=== PATIENT | female | born 1995 | race Caucasian/White ===

== ENCOUNTER 2019-06-06 10:08 | Emergency (ER) | payer OTHER ==
[~2019-06-06] VITALS: Ht 154.9 cm; Wt 68.0 kg
--- NOTE | 2019-06-06 11:15 | RAD ---
EXAM: Head CT without contrast. HISTORY: Trauma. Syncope. TECHNIQUE: Computed tomographic images of the head were obtained without contrast. *One or more of the following individualized dose reduction techniques were utilized for this examination: 1. Automated exposure control. 2. Adjustment of the mA and/or kV according to patient size. 3. Use of iterative reconstruction technique. COMPARISON: None. FINDINGS: There is no acute or subacute extra-axial or intraparenchymal hemorrhage. There is no mass effect or midline shift. There is no hydrocephalus. The anton-white matter differentiation pattern is intact. The visualized portions of the orbits, paranasal sinuses and mastoid air cells are unremarkable. No suspicious calvarial lesion is seen. IMPRESSION: No acute intracranial findings. Electronically signed by: Margarita Campbell MD (06/06/2019 11:11 AM) [place] [id number]
--- NOTE | 2019-06-06 11:46 | PHYS DOC ---
Past History Past Medical History: No Pertinent History Past Surgical History: Tonsillectomy, Other Additional Past Surgical Histo: adnoidectomy Alcohol Use: Occasionally Drug Use: None Adult General Chief Complaint Chief Complaint: DIZZY/LIGHT HEADED HPI HPI Patient is a 24-year-old female who presented to ER today for evaluation of head injury. Patient says she was cleaning in her bedroom when she accidentally hit her right elbow against the dresser. She was having pain so she sat down on her bed. She then passed out from the pain. She hit the left side of her head the ground. She denies any neck pain. Patient felt much better now. Patient denies any pain in her elbow anymore. She denies any medical history, denies any chest pain or any trouble breathing. All other ROS is negative unless otherwise noted in HPI Review of Systems Review of Systems See above Allergies Allergies Allergies Coded Allergies Type Severity Reaction Last Updated Verified adhesive Allergy Unknown Rash 06/06/19 Yes Physical Exam Physical Exam See above Constitutional: Well developed, well nourished, no acute distress, non-toxic appearance. [] HENT: Normocephalic, there is a small scalp contusion on the left temporal area no laceration., bilateral external ears normal, oropharynx moist, no oral exudates, nose normal. [] Eyes: PERRLA, EOMI, conjunctiva normal, no discharge. [] Neck: Normal range of motion, no tenderness, supple, no stridor. [] Cardiovascular:Heart rate regular rhythm, no murmur [] Lungs & Thorax: Bilateral breath sounds clear to auscultation [] Abdomen: Bowel sounds normal, soft, no tenderness, no masses, no pulsatile masses. [] Skin: Warm, dry, no erythema, no rash. [] Back: No tenderness, no CVA tenderness. [] Extremities: No tenderness, no cyanosis, no clubbing, ROM intact, no edema. There is a small area of contusion on the back of her right elbow, there is no bony tenderness, there is full range of motion of her right elbow. Neurologic: Alert and oriented X 3, normal motor function, normal sensory function, no focal deficits noted. [] Psychologic: Affect normal, judgement normal, mood normal. [] Current Patient Data Vital Signs Vital Signs Date Time Temp Pulse Resp B/P (MAP) Pulse Ox O2 Delivery O2 Flow Rate FiO2 1/2/20 10:26 99.0 69 16 99 Room Air EKG EKG [] Radiology/Procedures Radiology/Procedures [][address] [address] IMAGING REPORT Signed PATIENT: CEZAR CHÁVEZ ACCOUNT: [id number] : 1995 LOCATION: ER AGE: 24 SEX: F EXAM STATUS: REG ER ORD. PHYSICIAN: FIOR ROMO DO REASON: hit head on dresser after passing out PROCEDURE: CT HEAD WO CONTRAST EXAM: Head CT without contrast. HISTORY: Trauma. Syncope. TECHNIQUE: Computed tomographic images of the head were obtained without contrast. *One or more of the following individualized dose reduction techniques were utilized for this examination: 1. Automated exposure control. 2. Adjustment of the mA and/or kV according to patient size. 3. Use of iterative reconstruction technique. COMPARISON: None. FINDINGS: There is no acute or subacute extra-axial or intraparenchymal hemorrhage. There is no mass effect or midline shift. There is no hydrocephalus. The anton-white matter differentiation pattern is intact. The visualized portions of the orbits, paranasal sinuses and mastoid air cells are unremarkable. No suspicious calvarial lesion is seen. IMPRESSION: No acute intracranial findings. Electronically signed by: Margarita Hernandes MD (06/06/2019 11:11 AM) [facility] DICTATED AND SIGNED BY: MARGARITA HERNANDES MD DATE: 06/06/19 1111 CC: PCP,NO; FIOR ROMO DO ~ Course & Med Decision Making Course & Med Decision Making Pertinent Labs and Imaging studies reviewed. (See chart for details) Patient is a 24-year-old female who passed out due to vasovagal response from pain. CT scan her head was normal. Patient is safe to discharge home. No further workup needed. Dragon Disclaimer Dragon Disclaimer This electronic medical record was generated, in whole or in part, using a voice recognition dictation system. Departure Departure: Impression: Primary Impression: Closed head injury Disposition: HOME, SELF-CARE Condition: STABLE Referrals: PCP,NO (PCP) FOLLOW UP WITH YOUR DOCTOR NEXT WEEK NEEDED Patient Instructions: Head Injury, Adult FIOR ROMO DO Jun 06, 2019 11:46
[2019-06-06 12:10] VITALS: BP 111/71
== END 2019-06-06 12:10 | disposition home or self-care (01) ==
LOC: ER 10:08
DX: S00.03XA Contusion of scalp, initial encounter (principal); S50.01XA Contusion of right elbow, initial encounter; R55 Syncope and collapse; Z88.8 Allergy status to other drugs, medicaments and biological substances; W18.09XA Striking against other object with subsequent fall, initial encounter; Y93.E9 Activity, other interior property and clothing maintenance; Y92.092 Bedroom in other non-institutional residence as the place of occurrence of the external cause; Y99.8 Other external cause status
CPT/HCPCS: 70450; 99284-25

== ENCOUNTER 2020-10-22 15:17 | Emergency (ER) | payer OTHER ==
[~2020-10-22] VITALS: Ht 154.9 cm; Wt 67.1 kg
[2020-10-22 15:41] VITALS: BP 116/65
[2020-10-22 16:06] LABS: BASO % 1 % (0-3); EOS # 0.1 x10^3/uL (0.0-0.7); EOS % 1 % (0-3); HEMATOCRIT 37.4 % (36.0-47.0); HEMOGLOBIN 12.4 g/dL (12.0-15.5); LYMPH # 1.6 x10^3/uL (1.0-4.8); LYMPH % 23 % (24-48); MEAN CORPUSCULAR HEMOGLOBIN 28 pg (25-35); MEAN CORPUSCULAR HGB CONC 33 g/dL (31-37); MEAN CORPUSCULAR VOLUME 84 fL (79-100); MONO # 0.4 x10^3/uL (0.0-1.1); MONO % 5 % (0-9); NEUT % 70 % (31-73); PLATELET COUNT 248 x10^3/uL (140-400); RED BLOOD COUNT 4.44 x10^6/uL (3.50-5.40); RED CELL DISTRIBUTION WIDTH 13.5 % (11.5-14.5); WHITE BLOOD COUNT 7.1 x10^3/uL (4.0-11.0)
[2020-10-22 16:10] LABS: CALCIUM 8.8 mg/dL (8.5-10.1); CREATININE 0.6 mg/dL (0.6-1.0); GFR 123.9; POTASSIUM 3.7 mmol/L (3.5-5.1)
[2020-10-22 16:16] LABS: ALBUMIN 3.9 g/dL (3.4-5.0); ALBUMIN/GLOBULIN RATIO 1.4 (1.0-1.7); MAGNESIUM 2.1 mg/dL (1.8-2.4); TOTAL BILIRUBIN 0.2 mg/dL (0.2-1.0); TOTAL PROTEIN 6.6 g/dL (6.4-8.2)
--- NOTE | 2020-10-22 16:16 | RAD ---
EXAM: OBSTETRIC ULTRASOUND, <14 WEEKS. HISTORY: Vaginal bleeding and pelvic pain in . COMPARISON: None. FINDINGS: Sonographic evaluation of the pelvis was performed transabdominally. The uterus is anteverted and measures 9.5 x 8.7 x 5.8 cm. There is a single intrauterine gestation me asuring 8 weeks 5 days. heart rate is 171 bpm. A yolk sac is visualized. The gestational sac is regular. There is no subchorionic collection. The right ovary measures 2.8 x 1.6 x 1.4 cm. The left ovary measures 3.1 x 2.6 x 1.4 cm. There is nor mal Doppler flow bilaterally. There is no adnexal mass. There is no significant free fluid. IMPRESSION: 1. Single intrauterine gestation measuring 8 weeks 5 days. heart rate 171 bpm. Electronically signed by: Tracey Cantu MD (10/22/2020 4:14 PM) [facility]
--- NOTE | 2020-10-22 16:24 | PHYS DOC ---
Past History Past Medical History: No Pertinent History Past Surgical History: Tonsillectomy, Other Additional Past Surgical Histo: adnoidectomy Alcohol Use: None Drug Use: None General Adult EDM: Chief Complaint: VAGINAL BLEEDING HPI: HPI: Patient is a 25-year-old G1 at approximately 9 weeks gestational age by LMP presenting for vaginal bleeding and lower abdominal cramping. Patient says that over the past 3 days she has had some light spotting without pain. Today she has had vaginal cramping with bright red blood and one small clot. States pain is a little bit worse on the left. Denies seeing any tissue. Last intercourse 5 days ago and did not have pain after that. Has an appointment with her [employer] SPECIALIST in 3 days for her first ultrasound, has not had an ultrasound yet for this . Denies any vaginal discharge. Patient states she has a history of anemia but is denying any lightheadedness, tachycardia, or chest pain today. Patient states she has had decreased food intake but has been taking in adequate fluids. Review of Systems: Review of Systems: All other systems within normal limits except for as noted in the HPI Allergies: Allergies: Allergies Coded Allergies Type Severity Reaction Last Updated Verified adhesive Allergy Unknown Rash 06/06/19 Yes Physical Exam: PE: Constitutional: Well developed, well nourished, no acute distress, non-toxic appearance. [] HENT: Normocephalic, atraumatic, bilateral external ears normal, nose normal. [] Eyes: PERRLA, conjunctiva normal, no discharge. [] Neck: No rigidity, supple, no stridor. [] Cardiovascular: Regular rate and rhythm, brisk cap refill [] Lungs & Thorax: Non labored symmetric respirations, no tachypnea or respiratory distress [] Abdomen: Soft, nondistended, mild tenderness in low abdomen, no palpable uterus.. Skin: Warm, dry, no erythema, no rash. [] Back: Unremarkable Extremities: No deformities, range of motion grossly intact, no lower extremity edema [] Neurologic: Alert and oriented X 3, no focal deficits noted. [] Psychologic: Affect normal, judgement normal, mood normal. [] Current Patient Data: Labs: Laboratory Tests Test 10/22/20 15:45 White Blood Count 7.1 x10^3/uL (4.0-11.0) Red Blood Count 4.44 x10^6/uL (3.50-5.40) Hemoglobin 12.4 g/dL (12.0-15.5) Hematocrit 37.4 % (36.0-47.0) Mean Corpuscular Volume 84 fL (79-100) Mean Corpuscular Hemoglobin 28 pg (25-35) Mean Corpuscular Hemoglobin Concent 33 g/dL (31-37) Red Cell Distribution Width 13.5 % (11.5-14.5) Platelet Count 248 x10^3/uL (140-400) Neutrophils (%) (Auto) 70 % (31-73) Lymphocytes (%) (Auto) 23 % (24-48) L Monocytes (%) (Auto) 5 % (0-9) Eosinophils (%) (Auto) 1 % (0-3) Basophils (%) (Auto) 1 % (0-3) Neutrophils # (Auto) 5.0 x10^3uL (1.8-7.7) Lymphocytes # (Auto) 1.6 x10^3/uL (1.0-4.8) Monocytes # (Auto) 0.4 x10^3/uL (0.0-1.1) Eosinophils # (Auto) 0.1 x10^3/uL (0.0-0.7) Basophils # (Auto) 0.0 x10^3/uL (0.0-0.2) Sodium Level 141 mmol/L (136-145) Potassium Level 3.7 mmol/L (3.5-5.1) Chloride Level 106 mmol/L (98-107) Carbon Dioxide Level 23 mmol/L (21-32) Anion Gap 12 (6-14) Blood Urea Nitrogen 7 mg/dL (7-20) Creatinine 0.6 mg/dL (0.6-1.0) Estimated GFR (Cockcroft-Gault) 123.9 BUN/Creatinine Ratio 12 (6-20) Glucose Level 110 mg/dL (70-99) H Calcium Level 8.8 mg/dL (8.5-10.1) Magnesium Level 2.1 mg/dL (1.8-2.4) Total Bilirubin 0.2 mg/dL (0.2-1.0) Aspartate Amino Transferase (AST) 14 U/L (15-37) L Alanine Aminotransferase (ALT) 18 U/L (14-59) Alkaline Phosphatase 38 U/L (46-116) L Total Protein 6.6 g/dL (6.4-8.2) Albumin 3.9 g/dL (3.4-5.0) Albumin/Globulin Ratio 1.4 (1.0-1.7) Vital Signs: Vital Signs Date Time Temp Pulse Resp B/P (MAP) Pulse Ox O2 Delivery O2 Flow Rate FiO2 10/22/ 15:41 98.1 90 16 116/65 (82) 99 EKG: EKG: [] Radiology/Procedures: Radiology/Procedures: EXAM: OBSTETRIC ULTRASOUND, <14 WEEKS. HISTORY: Vaginal bleeding and pelvic pain in . COMPARISON: None. FINDINGS: Sonographic evaluation of the pelvis was performed transabdominally. The uterus is anteverted and measures 9.5 x 8.7 x 5.8 cm. There is a single intrauterine gestation measuring 8 weeks 5 days. heart rate is 171 bpm. A yolk sac is visualized. The gestational sac is regular. There is no subchorionic collection. The right ovary measures 2.8 x 1.6 x 1.4 cm. The left ovary measures 3.1 x 2.6 x 1.4 cm. There is normal Doppler flow bilaterally. There is no adnexal mass. There is no significant free fluid. IMPRESSION: 1. Single intrauterine gestation measuring 8 weeks 5 days. heart rate 171 bpm.[] Heart Score: C/O Chest Pain: No Risk Factors: Risk Factors: DM, Current or recent (<one month) smoker, HTN, HLP, family history of CAD, obesity. Risk Scores: Score 0 - 3: 2.5% MACE over next 6 weeks - Discharge Home Score 4 - 6: 20.3% MACE over next 6 weeks - Admit for Clinical Observation Score 7 - 10: 72.7% MACE over next 6 weeks - Early Invasive Strategies Course & Med Decision Making: Course & Med Decision Making Pertinent Labs and Imaging studies reviewed. (See chart for details) RUN DATE: 10/22/20 [facility] *LIVE* PAGE 1 RUN TIME: 1706 Specimen Inquiry PATIENT: CEZAR CHÁVEZ ACCT: [id number] LOC: ER U: [id number] AGE/SX: ROOM: RE10/22/[address]: MURPHY FALLON MD : 1995 BED: DIS: STATUS: REG ER TLOC: SPEC #: [id number] DONNA: 10/22/20 STATUS: COMP REQ #: [id number] RECD: 10/22/20 [facility] DR: MURPHY FALLON MD SOURCE: VAGINAL ENTR: 10/22/[address]: GIL BEARD SPDESC: ORDERED: WET PREP COMMENTS: Has specimen been collected/obtained? Y Procedure Result WET PREP Final YEAST NONE SEEN TRICHOMONAS NONE SEEN CLUE CELLS NONE SEEN ALTERED DG ALTERED DG PRESENT SUGGESTIVE OF BACTERIAL VAGINOSIS SQUAMOUS EPS MODERATE [] Percy Disclaimer: Percy Disclaimer: This electronic medical record was generated, in whole or in part, using a voice recognition dictation system. Departure Departure: Impression: Primary Impression: Threatened in early Additional Impression: Bacterial vaginosis in Disposition: HOME / SELF CARE / HOMELESS Condition: STABLE Referrals: PCP,GIL (PCP) Patient Instructions: Pelvic Rest, Vaginal Bleeding During , First Trimester Scripts Metronidazole (METRONIDAZOLE) 250 Mg Tablet 1 TAB PO TID for antibiotic, #21 TAB Prov: MURPHY FALLON MD 10/22/20 MURPHY FALLON MD October 22, 2020 16:24
[2020-10-22 17:18] LABS: COLOR,URINE YELLOW
[2020-10-22 17:19] LABS: BACTERIA,URINE FEW /HPF (0-FEW); BILIRUBIN,URINE NEG (NEG); CLARITY,URINE CLEAR; GLUCOSE,URINE NEG (NEG); NITRITE,URINE NEG (NEG); RBC,URINE RARE /HPF (0-2); SQUAMOUS EPITHELIAL CELL,UR FEW /LPF; UROBILINOGEN,URINE 0.2 mg/dL (0.2 mg/dL); WBC,URINE RARE /HPF (0-4)
[2020-10-22] MEDS ORDERED: METR-111 PO (17:28)
[2020-10-23 16:11] LABS: CHLAMYDIA PROBE Negative (Negative)
== END 2020-10-22 17:36 | disposition home or self-care (01) ==
LOC: ER 15:17
DX: O20.0 Threatened abortion (principal); N76.0 Acute vaginitis; Z3A.09 9 weeks gestation of pregnancy
CPT/HCPCS: 36415; 76801; 80053; 81001; 83735; 84702; 85025; 86900; 86901; 87491; 87591; 99284; Q0111